=== PATIENT | female | born 1955 | race Two or more races ===

== ENCOUNTER 2018-05-31 07:07 | Outpatient (CLI) | payer BC ==
[2018-06-05] MEDS ORDERED: HYZAAR 100-12.1 EACH PO (12:47)
[2018-06-05] MEDS ORDERED: ARIMIDEX PO (12:47)
== END 2018-05-31 07:56 | disposition home or self-care (01) ==
LOC: TOM 07:07
DX: C18.0 Malignant neoplasm of cecum (principal); R59.0 Localized enlarged lymph nodes; K92.1 Melena

== ENCOUNTER 2018-06-05 15:00 | Inpatient (IN) | payer BC ==
[~2018-06-05] VITALS: Ht 152.4 cm; Wt 65.8 kg
[~2018-06-05 15:00] MED LIST: ARIMIDEX PO; HYZAAR 100-12.1 EACH PO
[2018-06-11] MEDS ORDERED: ANASTROZOLE1 MG PO (09:38)
[2018-06-16] MEDS ORDERED: OXYC1TAB9 PO (11:11)
== END 2018-06-16 11:53 | disposition home or self-care (01) | DRG 331 ==
LOC: EDUNIT# 15:00 → O/R 06-11 06:10 → SURH 06-11 06:10 → SURG 06-11 13:54 → SURH 06-11 14:11
PROVIDERS: ADMIT Surgery
PROC: 07TB4ZZ Resection of Mesenteric Lymphatic, Percutaneous Endoscopic Approach (ICD-10-PCS; 2018-06-11)
PROC: 0DTH4ZZ Resection of Cecum, Percutaneous Endoscopic Approach (ICD-10-PCS; principal; 2018-06-11 10:45)
DX: C18.0 Malignant neoplasm of cecum (principal); R59.0 Localized enlarged lymph nodes; I10 Essential (primary) hypertension; E87.6 Hypokalemia

== ENCOUNTER 2020-01-12 07:08 | Day surgery (SDC) | payer OTHER ==
[~2020-01-12 07:08] MED LIST changes: +ANASTROZOLE1 MG PO; +OXYC1TAB9 PO
== END 2020-01-12 12:30 | disposition home or self-care (01) ==
LOC: AMB-ENDOS 07:08
PROVIDERS: ATTEND Surgery
DX: K62.89 Other specified diseases of anus and rectum (principal); Z20.828 Contact with and (suspected) exposure to other viral communicable diseases